=== PATIENT | male | born 1970 | race Caucasian/White ===

== ENCOUNTER 2019-10-15 11:20 | Emergency (ER) | payer OTHER ==
[2019-10-15 11:49] LABS: #Basophils 0.1 thou/uL (0.0-0.2); #Eosinphils 0.1 thou/uL (0.0-0.7); #Lymphocytes 2.7 thou/uL (1.20-3.40); #Monocytes 1.2 thou/uL (0.11-0.59); #Neutrophils 8.7 thou/uL (1.40-6.50); %Basophils 0.4 % (0.0-1.0); %Eosinophils 0.8 % (0.0-10.0); %Lymphocytes 21.1 % (21.0-51.0); %Monocytes 9.1 % (0.0-10.0); %Neutrophils 68.5 % (42.0-75.0); Hemoglobin 18.9 g/dL (14.0-18.0); Mean Corpuscular HGB CONC 34.7 g/dL (32.0-36.0); Mean Corpuscular Hemoglobin 31.7 pg (27.0-31.0); Mean Corpuscular Volume 91.4 fL (78.0-98.0); Mean Platelet Volume 8.4 fL (7.4-10.4); Platelet Count 231 thou/uL (130-400); RBC Distribution Width 11.1 % (11.5-14.5); Red Blood Cell (RBC) Count 5.96 mill/uL (4.70-6.10); White Blood Cell (WBC) Count 12.7 thou/uL (4.8-10.8)
[2019-10-15 12:12] LABS: ALT (SGPT) 66 U/L (8-55); AST (SGOT) 32 U/L (5-34); Albumin 4.7 g/dL (3.5-5.0); Alkaline Phosphatase 100 U/L (40-110); Anion Gap 14 mmol/L (10-20); BUN (Urea Nitrogen) 7 mg/dL (8.9-20.6); Bilirubin, Total 0.6 mg/dL (0.2-1.2); CK (CPK) 273 U/L (30-200); Calc. Creatinine Clearance 0 mL/min (70-130); Carbon Dioxide 26 mmol/L (22-29); Chloride 107 mmol/L (98-107); Estimated GFR-MDRD 76; Globulin 3.4 g/dL (2.4-3.5); Glucose 114 mg/dL (70-105); Potassium 3.6 mmol/L (3.5-5.1); Protein, Total 8.1 g/dL (6.0-8.3); Sodium 143 mmol/L (136-145)
--- NOTE | 2019-10-15 12:24 | RAD ---
SINGLE VIEW CHEST: Date: 10/15/2019 COMPARISON: None. HISTORY: Chest pressure for a month. FINDINGS: Single view of the chest shows a normal sized cardiomediastinal silhouette. There is no evidence of c onsolidation, mass, or pleural effusion. The bones are unremarkable. IMPRESSION: No evidence of acute cardiopulmonary disease. POS: [facility]
[2019-10-15 12:44] LABS: Bilirubin Negative (Negative); Blood, Urine Negative (Negative); Clarity Clear (Clear); Glucose, Urine (Dipstick) Normal (Negative); Leukocyte Negative Leu/uL (Negative); Nitrite Negative (Negative); Protein, Urine (Dipstick) Negative (Neg-Trace); Urobilinogen Normal mg/dL (Less than 2)
[2019-10-15] MEDS ORDERED: Lidocaine Viscous Sol 2% 15 ml UD Cup ONE (13:17)
[2019-10-15] MEDS ORDERED: Mag-Al 1200 mg/1200 mg/30 ML UDCUP ONE (13:17)
[2019-10-15] MEDS ORDERED: Albuterol Sulfate 2.5 mg/3 ml Neb ONE (14:46)
[2019-10-15 15:02] LABS: Troponin I Less than 0.010 ng/mL (< 0.028)
[2019-10-15] MEDS ORDERED: PROVENTIL INHALER 6.7 G (200 INHALATIONS) INH SCH (15:15)
[2019-10-15] MEDS ORDERED: Albuterol 200 PUFF (6.7GM INHALER) ONE (15:29)
--- NOTE | 2019-10-20 14:11 | EKG ---
Test Reason : Blood Pressure : / mmHG Vent. Rate : 107 BPM Atrial Rate : 107 BPM P-R Int : 156 ms QRS Dur : 074 ms QT Int : 336 ms P-R-T Axes : 030 -20 016 degrees QTc Int : 448 ms Sinus tachycardia Otherwise normal ECG Confirmed by KD RODRIGEZ DO ([id number]), order editor CHIDI ABRAMS ([id number] on 10/20/2019 2:10:41 PM Referred By: Confirmed By:KD RODRIGEZ DO
== END 2019-10-15 15:57 | disposition home or self-care (01) ==
LOC: ERS 11:20
DX: R07.9 Chest pain, unspecified (principal); R05 Cough; K21.9 Gastro-esophageal reflux disease without esophagitis; F17.210 Nicotine dependence, cigarettes, uncomplicated
CPT/HCPCS: 36415; 71045; 80053; 81003; 82550; 84484; 85025; 85379; 87635; 93005; J7611; U0002

== ENCOUNTER 2019-11-27 06:53 | Emergency (ER) | payer OTHER ==
[2019-11-27 07:45] LABS: #Basophils 0.1 thou/uL (0.0-0.2); #Eosinphils 0.2 thou/uL (0.0-0.7); #Lymphocytes 2.2 thou/uL (1.20-3.40); #Monocytes 0.9 thou/uL (0.11-0.59); #Neutrophils 5.9 thou/uL (1.40-6.50); %Basophils 0.6 % (0.0-1.0); %Eosinophils 1.9 % (0.0-10.0); %Lymphocytes 23.7 % (21.0-51.0); %Monocytes 9.9 % (0.0-10.0); Hemoglobin 17.8 g/dL (14.0-18.0); Mean Corpuscular HGB CONC 35.3 g/dL (32.0-36.0); Mean Corpuscular Hemoglobin 31.7 pg (27.0-31.0); Mean Corpuscular Volume 89.9 fL (78.0-98.0); Mean Platelet Volume 9.1 fL (7.4-10.4); Platelet Count 194 thou/uL (130-400); Red Blood Cell (RBC) Count 5.63 mill/uL (4.70-6.10); White Blood Cell (WBC) Count 9.3 thou/uL (4.8-10.8)
[2019-11-27 08:00] LABS: ALT (SGPT) 66 U/L (8-55); AST (SGOT) 29 U/L (5-34); Albumin 4.2 g/dL (3.5-5.0); Alkaline Phosphatase 98 U/L (40-110); Anion Gap 13 mmol/L (10-20); BUN (Urea Nitrogen) 9 mg/dL (8.9-20.6); Calc. Creatinine Clearance 0 mL/min (70-130); Calcium 9.3 mg/dL (7.8-10.44); Carbon Dioxide 25 mmol/L (22-29); Chloride 106 mmol/L (98-107); Estimated GFR-MDRD 84; Globulin 3.2 g/dL (2.4-3.5); Glucose 127 mg/dL (70-105); Potassium 3.6 mmol/L (3.5-5.1); Protein, Total 7.4 g/dL (6.0-8.3); Sodium 140 mmol/L (136-145)
--- NOTE | 2019-11-27 08:00 | RAD ---
PORTABLE CHEST: Date: 11/27/2019 HISTORY: Dyspnea. COMPARISON: 10/15/2019 exam. FINDINGS: Heart size and mediastinum are within normal limits. The lungs are clear of any infiltrative process. IMPRESSION: No active intrathoracic disease. POS: [facility]
== END 2019-11-27 09:05 | disposition home or self-care (01) ==
LOC: ERS 06:53
DX: R06.00 Dyspnea, unspecified (principal); R07.89 Other chest pain; I10 Essential (primary) hypertension; E78.5 Hyperlipidemia, unspecified; E78.00 Pure hypercholesterolemia, unspecified; F41.9 Anxiety disorder, unspecified; F17.210 Nicotine dependence, cigarettes, uncomplicated; K21.9 Gastro-esophageal reflux disease without esophagitis; Z79.899 Other long term (current) drug therapy
CPT/HCPCS: 71045; 80053; 83880; 84484; 85025; 93005

== ENCOUNTER 2022-01-01 00:25 | Inpatient (IN) | payer OTHER ==
[2022-01-01] MEDS ORDERED: Propofol 1,000 MG/100 ML VIAL IV ONE (00:38)
[2022-01-01 00:45] LABS: Hemoglobin 16.6 g/dL (14.0-18.0); Mean Corpuscular HGB CONC 33.8 g/dL (32.0-36.0); Mean Corpuscular Hemoglobin 32.3 pg (27.0-31.0); Mean Corpuscular Volume 95.6 fL (78.0-98.0); Mean Platelet Volume 9.5 fL (7.4-10.4); Platelet Count 155 thou/uL (130-400); RBC Distribution Width 10.9 % (11.5-14.5); Red Blood Cell (RBC) Count 5.13 mill/uL (4.70-6.10)
[2022-01-01] MEDS ORDERED: Rocuronium Bromide 10 MG/ML (10ML VIAL) ONE (00:49)
[2022-01-01] MEDS ORDERED: PROPOFOL 200 MG/20 ML VIAL ONE (00:49)
[2022-01-01 00:54] LABS: INR-International Normal Ratio 1.2; PTT 36.4 sec (22.9-36.1)
[2022-01-01 01:05] LABS: ALT (SGPT) 19 U/L (8-55); AST (SGOT) 18 U/L (5-34); Alkaline Phosphatase 75 U/L (40-110); Anion Gap 19 mmol/L (10-20); BUN (Urea Nitrogen) 23 mg/dL (8.4-25.7); Bilirubin, Total 1.2 mg/dL (0.2-1.2); CK (CPK) 526 U/L (30-200); Calc. Creatinine Clearance 0 mL/min (70-130); Calcium 9.2 mg/dL (7.8-10.44); Carbon Dioxide 21 mmol/L (22-29); Chloride 100 mmol/L (98-107); Estimated GFR 73; Globulin 3.9 g/dL (2.4-3.5); Glucose 265 mg/dL (70-105); Magnesium 1.8 mg/dL (1.6-2.6); Potassium 3.1 mmol/L (3.5-5.1); Protein, Total 7.9 g/dL (6.0-8.3); Sodium 137 mmol/L (136-145)
[2022-01-01 01:08] LABS: Band 11 % (5-11); Lymphocytes 1 % (21-51); MDiff Complete? YES; Metamyelocyte 1 % (0-0); Monocytes 6 % (0-10); Neutrophil 81 % (42-75); Platelet Morphology Comment Appears Adequate; RBC Morphology Normal
[2022-01-01 01:12] LABS: Amphetamine Not Detected (NotDetected); Barbiturates Screen Not Detected (NotDetected); Benzodiazepine Screen Not Detected (NotDetected); Cocaine Metabolite Screen Not Detected (NotDetected); Methadone Not Detected (NotDetected); Methamphetamine Not Detected (NotDetected); Opiate Screen Not Detected (NotDetected); Oxycodone Screen Not Detected (NotDetected); Phencyclidine (PCP) Not Detected (NotDetected); THC/Cannabinoid Screen Not Detected (NotDetected); Tricyclic Screen Not Detected (NotDetected)
[2022-01-01 01:13] LABS: Acetaminophen Less than 10.0 mcg/mL (10.0-30.0); Alcohol Less than 10 mg/dL (Less than 10); Salicylate Less than 8.0 mg/dL (15.0-30.0)
[2022-01-01 01:25] LABS: CKMB 0.6 ng/mL (0-6.6)
[2022-01-01] MEDS ORDERED: Acetaminophen 650 MG Suppository ONE (01:30)
[2022-01-01] MEDS ORDERED: Vancomycin 1 GM/200 ML BAG ONE (01:30)
[2022-01-01] MEDS ORDERED: Cefepime 2 GM VIAL ONE (01:30)
[2022-01-01 01:37] LABS: Actual Bicarbonate (HCO3a) 24.6 mEq/L (22-28); Analyzer IN Cardio ER; Base Excess (BEa) -3.9 mEq/L (-2.0 to +3.0); CO2 Tension 57.7 mmHg (35.0-45.0); Calcium, Ionized (arterial) 1.18 mmol/L (1.12-1.30); Carboxyhemoglobin (COHb) 0.4 gm% (0.0-3.0); O2 Tension (PaO2), arterial 87.8 mmHg (80.0-100.0); Potassium - ABG Lab 3.33 mmol/L (3.70-5.30)
[2022-01-01 01:49] LABS: Puncture Site RRA; pH, Arterial 7.25 (7.35-7.45)
[2022-01-01 01:50] LABS: ALV-art Gradient 553.075 mmHg (0-20)
[2022-01-01 01:52] LABS: SARS-CoV-2 NAA Rapid Test Not Detected (NotDetected)
[2022-01-01] MEDS ORDERED: Ondansetron PF 4 MG/2 ML Vial IVP PRN (02:41)
[2022-01-01] MEDS ORDERED: Ventilator Sedation Protocol 1 EACH FS SCH (03:15)
[2022-01-01] MEDS ORDERED: Electrolyte Replacement Protocol 1 EACH IVPB PRN (03:15)
[2022-01-01] MEDS ORDERED: Sodium Bicarb 50 MEQ/50 ML VIAL ONE ×2 (03:22)
[2022-01-01] MEDS ORDERED: Midazolam HCl 2 mg/2 ml Vial SLOW IVP PRN (03:22)
[2022-01-01 03:24] LABS: Actual Bicarbonate (HCO3a) 21.7 mEq/L (22-28); Base Excess (BEa) -5.8 mEq/L (-2.0 to +3.0); CO2 Tension 50.5 mmHg (35.0-45.0); Calcium, Ionized (arterial) 1.13 mmol/L (1.12-1.30); O2 Tension (PaO2), arterial 54.3 mmHg (80.0-100.0); Potassium - ABG Lab 3.47 mmol/L (3.70-5.30); pH, Arterial 7.25 (7.35-7.45)
[2022-01-01 03:25] LABS: ALV-art Gradient 595.575 mmHg (0-20); Puncture Site LBR
[2022-01-01] MEDS ORDERED: DISCONTINUE PREVIOUS NARCOTIC PAIN MEDICATIONS AND BENZODIAZEPINES FS SCH (03:30)
[2022-01-01] MEDS ORDERED: Fentanyl CADD 100 ML IV SCH (03:30)
[2022-01-01] MEDS ORDERED: Propofol BOLUS 1,000 MG/100 ML VIAL IV PRN (03:30)
[2022-01-01] MEDS ORDERED: Morphine 4 MG/ML VIAL SLOW IVP PRN (03:30)
[2022-01-01] MEDS ORDERED: Magnesium 2 GM/50 ML(in water) 2 GM in Premix Bag 1 BAG IVPB SCH (03:30)
[2022-01-01] MEDS ORDERED: Propofol 1,000 MG/100 ML VIAL IV PRN (03:30)
[2022-01-01] MEDS ORDERED: Fentanyl BOLUS 250 ML IVPB PRN (03:30)
[2022-01-01] MEDS ORDERED: Sodium Bicarb 50 MEQ/50 ML VIAL IVP SCH (03:45)
[2022-01-01 03:54] LABS: Lactic Acid 3.4 mmol/L (0.5-2.2)
[2022-01-01 03:58] LABS: ALT (SGPT) 18 U/L (8-55); AST (SGOT) 22 U/L (5-34); Albumin 3.7 g/dL (3.5-5.0); Alkaline Phosphatase 71 U/L (40-110); Anion Gap 18 mmol/L (10-20); BUN (Urea Nitrogen) 20 mg/dL (8.4-25.7); Calc. Creatinine Clearance 0 mL/min (70-130); Carbon Dioxide 20 mmol/L (22-29); Chloride 104 mmol/L (98-107); Estimated GFR 87; Globulin 3.3 g/dL (2.4-3.5); Glucose 250 mg/dL (70-105); Magnesium 1.8 mg/dL (1.6-2.6); Potassium 3.5 mmol/L (3.5-5.1); Sodium 138 mmol/L (136-145)
[2022-01-01 04:07] LABS: Actual Bicarbonate (HCO3a) 21.7 mEq/L (22-28); Base Excess (BEa) -5.8 mEq/L (-2.0 to +3.0); CO2 Tension 50.5 mmHg (35.0-45.0); Calcium, Ionized (arterial) 1.13 mmol/L (1.12-1.30); Potassium - ABG Lab 3.47 mmol/L (3.70-5.30)
[2022-01-01 04:08] LABS: O2 Tension (PaO2), arterial 54.3 mmHg (80.0-100.0); Puncture Site BBR; pH, Arterial 7.25 (7.35-7.45)
[2022-01-01 04:09] LABS: ALV-art Gradient 595.575 mmHg (0-20)
[2022-01-01 04:10] LABS: Troponin I 0.647 ng/mL (< 0.028)
[2022-01-01] MEDS: Potassium Chloride 20 MEQ TAB PO SCH ×2 (04:15→04:24)
[2022-01-01] MEDS: Potassium Chloride 20 MEQ in Premix Bag 1 BAG IVPB SCH ×2 (04:55→06:19)
[2022-01-01 05:06] LABS: Band 9 % (5-11); Hemoglobin 16.8 g/dL (14.0-18.0); Lymphocytes 3 % (21-51); MDiff Complete? YES; Mean Corpuscular HGB CONC 33.1 g/dL (32.0-36.0); Mean Corpuscular Hemoglobin 31.8 pg (27.0-31.0); Mean Corpuscular Volume 96.2 fL (78.0-98.0); Mean Platelet Volume 8.3 fL (7.4-10.4); Monocytes 5 % (0-10); Neutrophil 83 % (42-75); Platelet Count 155 thou/uL (130-400); Platelet Morphology Comment Appears Adequate; RBC Distribution Width 10.9 % (11.5-14.5); RBC Morphology Normal; Red Blood Cell (RBC) Count 5.28 mill/uL (4.70-6.10); White Blood Cell (WBC) Count 24.6 thou/uL (4.8-10.8)
[2022-01-01] MEDS: Norepinephrine 8 MG/0.9% NS 250 ML IVPB SCH ×3 (05:20→13:27)
[2022-01-01] MEDS ORDERED: Norepinephrine 8 MG/0.9% NS 250 ML ONE (05:24)
[2022-01-01] MEDS ORDERED: Acetaminophen 650 MG Suppository PR SCH (05:30)
[2022-01-01] MEDS: Acetaminophen 325 MG Suppository PR SCH ×2 (05:51→05:52)
[2022-01-01] MEDS ORDERED: Piperacillin/Tazobactam 3.375 GM in Sodium Chloride 0.9% 100 ML IVPB SCH ×2 (06:00→10:00)
[2022-01-01 08:18] LABS: Squamous Epithelial None Seen HPF (0-3); Transitional Epithelial 0-3 HPF (None Seen)
[2022-01-01 08:21] LABS: Clarity Cloudy (Clear); Leukocyte Negative Leu/uL (Negative); Nitrite Negative (Negative); Specific Gravity, Urine 1.041 (1.002-1.036)
[2022-01-01 08:23] LABS: Glucose, Urine (Dipstick) >=1000 mg/dL (Negative); Protein, Urine (Dipstick) 100 mg/dL (Neg-Trace)
[2022-01-01 08:25] LABS: Bilirubin 1+ (Negative); Ketone, Urine Negative (Negative)
[2022-01-01 08:27] LABS: Bacteria/HPF 2+ HPF (None Seen)
[2022-01-01 08:28] LABS: Blood, Urine 1+ (Negative)
[2022-01-01 08:30] LABS: Urine Culture Reflex Yes Yes
[2022-01-01] MEDS ORDERED: Enoxaparin Sodium 40 MG/0.4 ML SYRINGE SC SCH (09:00)
[2022-01-01] MEDS: Famotidine 20 MG TAB PO SCH ×2 (09:44→22:05)
[2022-01-01 09:59] LABS: Legionella Urinary Ag Negative (Negative); Strep pneumo Urine Ag NEGATIVE (NEGATIVE)
[2022-01-01 10:12] LABS: Troponin I 1.322 ng/mL (< 0.028)
[2022-01-01] MEDS ORDERED: Cefepime 2 GM in Sodium Chloride 0.9% 100 ML IVPB SCH (14:00)
[2022-01-01] MEDS ORDERED: Dexamethasone 10 MG in Sodium Chloride 0.9% 50 ML IVPB SCH (14:18)
[2022-01-01] MEDS ORDERED: Insulin Regular 300 UNITS/3 ML VIAL SC PRN (14:22)
[2022-01-01] MEDS: Vancomycin HCl 750 MG in Sodium Chloride 0.9% 250 ML 250 ML IVPB SCH (14:24)
[2022-01-01] MEDS: Lactated Ringer's 1,000 ML IV SCH (14:25)
[2022-01-01] MEDS: Ampicillin 2 GM in Sodium Chloride 0.9% 100 ML IVPB SCH ×3 (14:39→22:05)
[2022-01-01] MEDS: Dexamethasone 10 MG/ML VIAL SLOW IVP SCH (14:41)
[2022-01-01] MEDS ORDERED: Dextrose 50% Abboject 50 ML SYRINGE IVP PRN (14:45)
[2022-01-01] MEDS ORDERED: Dextrose 5% in Water 1,000 ML IV PRN (14:45)
[2022-01-01 15:24] VITALS: BMI 38.0
[2022-01-01] MEDS: cefTRIAXone\\ROCEPHIN 2 GM in Sodium Chloride 0.9% 100 ML IVPB SCH (22:03)
[2022-01-02] MEDS: Ampicillin 2 GM in Sodium Chloride 0.9% 100 ML IVPB SCH ×3 (01:04→09:25)
[2022-01-02] MEDS: Vancomycin HCl 750 MG in Sodium Chloride 0.9% 250 ML 250 ML IVPB SCH (02:02)
[2022-01-02 04:45] LABS: ALT (SGPT) 25 U/L (8-55); AST (SGOT) 32 U/L (5-34); Albumin 2.9 g/dL (3.5-5.0); Alkaline Phosphatase 62 U/L (40-110); Anion Gap 14 mmol/L (10-20); BUN (Urea Nitrogen) 17 mg/dL (8.4-25.7); Bilirubin, Total 3.5 mg/dL (0.2-1.2); Calc. Creatinine Clearance 210 mL/min (70-130); Calcium 8.7 mg/dL (7.8-10.44); Carbon Dioxide 25 mmol/L (22-29); Chloride 103 mmol/L (98-107); Estimated GFR 111; Globulin 3.6 g/dL (2.4-3.5); Glucose 179 mg/dL (70-105); Magnesium 2.4 mg/dL (1.6-2.6); Potassium 4.1 mmol/L (3.5-5.1); Protein, Total 6.5 g/dL (6.0-8.3); Sodium 138 mmol/L (136-145)
[2022-01-02 05:29] LABS: Band 26 % (5-11); Hemoglobin 14.4 g/dL (14.0-18.0); Lymphocytes 5 % (21-51); MDiff Complete? YES; Mean Corpuscular HGB CONC 32.9 g/dL (32.0-36.0); Mean Corpuscular Hemoglobin 31.9 pg (27.0-31.0); Mean Corpuscular Volume 96.8 fL (78.0-98.0); Mean Platelet Volume 9.2 fL (7.4-10.4); Metamyelocyte 3 % (0-0); Monocytes 5 % (0-10); Neutrophil 61 % (42-75); Platelet Count 130 thou/uL (130-400); Platelet Morphology Comment Appears Adequate; RBC Distribution Width 10.9 % (11.5-14.5); RBC Morphology Normal; Red Blood Cell (RBC) Count 4.52 mill/uL (4.70-6.10)
[2022-01-02] MEDS: Lactated Ringer's 1,000 ML IV SCH (05:29)
[2022-01-02 07:57] LABS: Actual Bicarbonate (HCO3a) 29.2 mEq/L (22-28); Base Excess (BEa) 3.3 mEq/L (-2.0 to +3.0); CO2 Tension 49.1 mmHg (35.0-45.0); Calcium, Ionized (arterial) 1.19 mmol/L (1.12-1.30); Carboxyhemoglobin (COHb) 0.7 gm% (0.0-3.0); Hemoglobin (Hb) 14.6 g/dL (14.0-18.0); O2 Tension (PaO2), arterial 80.4 mmHg (80.0-100.0); Potassium - ABG Lab 3.73 mmol/L (3.70-5.30); pH, Arterial 7.39 (7.35-7.45)
[2022-01-02 08:00] LABS: ALV-art Gradient 143.425 mmHg (0-20); Puncture Site RBA
[2022-01-02] MEDS ORDERED: Enoxaparin Sodium 40 MG/0.4 ML SYRINGE SC SCH (09:00)
[2022-01-02] MEDS: cefTRIAXone\\ROCEPHIN 2 GM in Sodium Chloride 0.9% 100 ML IVPB SCH (09:25)
[2022-01-02] MEDS: Famotidine 20 MG TAB PO SCH (09:26)
[2022-01-02 10:51] VITALS: BP 94/65
[2022-01-02] MEDS ORDERED: Sodium Chloride 0.9% 1,000 ML IV SCH (12:15)
[2022-01-02 13:31] LABS: Vancomycin, Trough 3.9 ug/mL
[2022-01-02] MEDS ORDERED: VANCOMYCIN 2 GRAM/500 ML BAG 2 GM in Premix Bag 1 BAG IVPB SCH (14:00)
[2022-01-02 14:59] VITALS: TEMP 98.2
[2022-01-02] MEDS: Dexamethasone 10 MG/ML VIAL SLOW IVP SCH (16:40)
[2022-01-03 19:38] LABS: Mycoplasma pneumoniae IgG AB 385 U/mL (0-99); Mycoplasma pneumoniae IgM AB Less than 770 U/mL (0-769)
[2022-01-05 23:07] LABS: HSV 1 - DNA Negative (Negative); HSV 2 - DNA Negative (Negative)
== END 2022-01-02 16:05 | disposition hospice, inpatient (51) | DRG 871 ==
LOC: ERS 00:25 → CCU 02:29
PROVIDERS: ADMIT Internal Medicine; ATTEND Internal Medicine
PROC: 0BH18EZ Insertion of Endotracheal Airway into Trachea, Via Natural or Artificial Opening Endoscopic (ICD-10-PCS; principal; 2022-01-01)
PROC: 5A1945Z Respiratory Ventilation, 24-96 Consecutive Hours (ICD-10-PCS; 2022-01-01)
PROC: 0D9670Z Drainage of Stomach with Drainage Device, Via Natural or Artificial Opening (ICD-10-PCS; 2022-01-01)
PROC: 3E033XZ Introduction of Vasopressor into Peripheral Vein, Percutaneous Approach (ICD-10-PCS; 2022-01-01)
PROC: 3E03329 Introduction of Other Anti-infective into Peripheral Vein, Percutaneous Approach (ICD-10-PCS; 2022-01-01)
DX: A40.3 Sepsis due to Streptococcus pneumoniae (principal); G93.41 Metabolic encephalopathy; J80 Acute respiratory distress syndrome; Z51.5 Encounter for palliative care; R65.21 Severe sepsis with septic shock; G93.6 Cerebral edema; G03.9 Meningitis, unspecified; G93.5 Compression of brain; J15.3 Pneumonia due to streptococcus, group B; H70.001 Acute mastoiditis without complications, right ear; K21.9 Gastro-esophageal reflux disease without esophagitis; E78.5 Hyperlipidemia, unspecified; E78.00 Pure hypercholesterolemia, unspecified; I10 Essential (primary) hypertension; F41.9 Anxiety disorder, unspecified; F17.210 Nicotine dependence, cigarettes, uncomplicated; G47.33 Obstructive sleep apnea (adult) (pediatric); Z20.822 Contact with and (suspected) exposure to COVID-19; R77.8 Other specified abnormalities of plasma proteins; R73.9 Hyperglycemia, unspecified; Z98.890 Other specified postprocedural states; Z87.19 Personal history of other diseases of the digestive system; Z78.1 Physical restraint status; Z82.49 Family history of ischemic heart disease and other diseases of the circulatory system
CPT/HCPCS: 36415; 36416; 36600; 70450; 71045; 72100; 80053; 80202; 80306; 80307; 81001; 82550; 82553; 82805; 83605; 83735; 83880; 84443; 84484; 85025; 85610; 85730; 86850; 86900; 86901; 87040; 87077; 87086; 87149; 87186; 87449; 87529; 87798; 87899; 93005; 94002; 94003; 95816; J0290; J0692; J0696; J1100; J1650; J2543; J2704; J3010; J3370; J3475; J3480; J3490; J7050; J7120

== ENCOUNTER 2022-01-02 16:16 | Inpatient (IN) | payer OTHER ==
[2022-01-02 16:33] VITALS: BMI 38.9
[2022-01-02] MEDS ORDERED: Morphine 4 MG/ML VIAL SLOW IVP PRN (16:41)
[2022-01-02] MEDS ORDERED: Bisacodyl 10 MG SUPP PR PRN (16:42)
[2022-01-02] MEDS ORDERED: Diazepam 10 MG/2 ML SYRINGE IVP PRN ×2 (16:42→16:44)
[2022-01-02] MEDS ORDERED: Morphine 4 MG/ML VIAL ONE (16:42)
[2022-01-02] MEDS ORDERED: diphenhydrAMINE 50 MG/ML VIAL IVP PRN (16:45)
[2022-01-02] MEDS ORDERED: Promethazine HCl 25 MG SUPP PR PRN (16:45)
[2022-01-02] MEDS ORDERED: Ondansetron PF 4 MG/2 ML Vial IVP PRN (16:45)
[2022-01-02] MEDS ORDERED: Scopolamine 1.5 mg/72 hour Patch TOP PRN (16:45)
[2022-01-02] MEDS ORDERED: Acetaminophen 650 MG Suppository PR PRN (16:45)
[2022-01-02] MEDS ORDERED: Haloperidol Lactate 5 MG/ML VIAL SLOW IVP PRN (16:45)
== END 2022-01-02 17:05 | disposition expired | DRG 951 ==
LOC: CCU 16:16
PROVIDERS: ADMIT Family Medicine; ATTEND Family Medicine
DX: Z51.5 Encounter for palliative care (principal); A41.9 Sepsis, unspecified organism; R65.21 Severe sepsis with septic shock; J18.9 Pneumonia, unspecified organism; J96.90 Respiratory failure, unspecified, unspecified whether with hypoxia or hypercapnia; I10 Essential (primary) hypertension; E78.5 Hyperlipidemia, unspecified; K21.9 Gastro-esophageal reflux disease without esophagitis; G47.33 Obstructive sleep apnea (adult) (pediatric)
CPT/HCPCS: 95816; 95819; 95957; J2270